=== PATIENT | female | born 1955 | race Caucasian/White ===

== ENCOUNTER 2016-11-18 19:36 | Emergency (ER) | payer OTHER ==
--- NOTE | ~2016-11-18 | CT71 ---
[facility] A Service of [facility] RADIOLOGY TEXT RESULTS PATIENT: LETICIA REYNOLDS LOCATION: [facility] : 53 UNIT #: [id number] AGE: [address]: Bolivar Wagoner MD SEX: F ORDER DR: [id number] [facility]. [place], [place] [address] [id number] MR#: [id number] Acc #: [id number] NAME: LETICIA REYNOLDS : 1955 SEX: F STUDY DATE/TIME: 11/18/2016 22:15 UNIT: [facility] ROOM: STUDY DESCRIPTION: CT Head Wo Contrast Attending Physician: Bolivar Wagoner M.D. Ordering Physician: Karley Reddy M.D. MEDICAL IMAGING REPORT This report is preliminary unless electronic signature is present EXAM CT head, noncontrast, 11/18/2016 HISTORY 61-year-old female in the ED complaining of 2-day history of right facial numbness. TECHNIQUE CT examination of the head was performed without IV contrast. This CT exam was performed with one or more of the following radiation dose reduction techniques: automatic exposure control, adjustment of mA and/or kV according to patient size, and iterative reconstruction. FINDINGS The examination is negative. There is no evidence of intracranial hemorrhage, mass, mass effect, acute cerebral edema or hydrocephalus. Atheromatous calcification is present in the carotid siphons. IMPRESSION No acute intracranial abnormality. Dictated by... Peter Márquez M.D. THIS IS AN ELECTRONICALLY VERIFIED REPORT Peter Márquez M.D. at 11/19/2016 6:03 AM LEXEI/luca TD: 11/18/2016 23:02 JOB #: [id number] [facility] A Service [facility] RADIOLOGY TEXT RESULTS PATIENT: LETICIA REYNOLDS LOCATION: [place] : 53 UNIT #: [id number] AGE: [address]: Bolivar Wagoner MD SEX: F ORDER DR: MEDICAL IMAGING REPORT Page 1 of 1 COPY
--- NOTE | ~2016-11-18 | EKG ---
PATIENT: LETICIA REYNOLDS UNIT #: [id number] Ventricular Rate: 71 BPM Atrial Rate: 71 BPM P-R Interval: 186 ms QRS Duration: 84 ms Q-T Interval: 438 ms QTC Calculation(Bezet): 475 ms P [place]: 68 degrees Calculated R [place]: 49 degrees Calculated T [place]: 58 degrees Diagnosis Line: Normal sinus rhythm Diagnosis Line: Normal ECG Diagnosis Line: When compared with ECG of 18-NOV-2016 22:35, Diagnosis Line: (unconfirmed) Diagnosis Line: No significant change was found Diagnosis Line: Confirmed by KETTY CONDE MD ([id number]) on 11/21/2016 Diagnosis Line: 4:15:48 PM INTERPRETING MD: ELTON EMMANUEL
[~2016-11-18 19:36] MED LIST: FLEXERIL10 M1 PO; ULTRAM PO
[2016-11-18 21:22] LABS: URINE SOURCE CLEAN CATCH
[2016-11-18 21:27] LABS: URINE APPEARANCE CLEAR; URINE BILIRUBIN NEG (NEG); URINE BLOOD 2+ (NEG); URINE COLOR YELLOW; URINE GLUCOSE NEG (NEG); URINE KETONE NEG (NEG); URINE LEUKOCYTE ESTERASE NEG (NEG); URINE NITRATE NEG (NEG); URINE PROTEIN NEG (NEG); URINE SPECIFIC GRAVITY 1.017 (1.003-1.035)
[2016-11-18 21:28] LABS: POC - CKMB <1.0 ng/mL (0.0-7.9); POC - TROPONIN <0.05 ng/mL (<=0.05)
[2016-11-18 21:30] LABS: U HYALINE CASTS AUWI 0-2 /[LPF]; URINE BACTERIA AUWI NEG (NEGATIVE); URINE SQUAMOUS EPITHELIAL CELL NONE SEEN /[HPF]
[2016-11-18 21:31] LABS: BASOPHIL% 0.5 % (0-2.5); EOSINOPHIL# 0.1 X10e3 (0-0.7); EOSINOPHIL% 1.2 % (0.0-7.0); HEMATOCRIT 40.4 % (35.0-45.0); HEMOGLOBIN 13.3 gm/dL (12.0-16.0); LYMPHOCYTE# 4.9 X10e3 (1.0-3.5); LYMPHOCYTE% 54.7 % (17.0-45.0); MEAN CELL VOLUME 86.7 FL (83-96); MEAN CORPUSCULAR HEMOGLOBIN 28.6 PG (28-34); MEAN PLATELET VOLUME 10.1 FL (6.5-11.5); MONOCYTE# 0.5 X10e3 (0-1.0); MONOCYTE% 5.5 % (3.0-12.0); NEUTROPHIL# 3.4 X10e3 (1.5-7.1); NEUTROPHIL% 38.1 % (40-75); PLATELET COUNT 156 X10e3 (140-420); RED BLOOD COUNT 4.66 X10e (3.90-5.30); RED CELL DISTRIBUTION WIDTH 13.5 % (11.0-15.5); WHITE BLOOD COUNT 8.9 X10e3 (4.0-10.5)
[2016-11-18 21:32] LABS: DIFF IND YES
[2016-11-18 21:34] LABS: CULTURE INDICATED? NO
[2016-11-18 22:00] LABS: ALBUMIN SERUM 4.6 g/dL (3.5-5.0); BILIRUBIN, DIRECT 0.1 mg/dL (0.0-0.2); BILIRUBIN,INDIRECT 0.6 mg/dL (0.0-0.9); BILIRUBIN,TOTAL 0.7 mg/dL (0.2-2.0); CALCIUM SERUM 8.9 mg/dL (8.4-10.2); CREATININE SERUM 0.7 mg/dL (0.6-1.4); GLOM FILT RATE Estimated 92.9 mL/min (>60); POTASSIUM 3.2 mmol/L (3.5-5.1); PROTEIN TOTAL SERUM 7.1 g/dL (6.0-8.3)
[2016-11-18 22:42] LABS: PLATELET ESTIMATE NORMAL (NORMAL)
[2016-11-18 23:12] LABS: AMPHETAMINE NEG (NEG); BARBITURATES NEG (NEG); BENZODIAZEPINES NEG (NEG); COCAINE NEG (NEG); MARIJUANA POS (NEG); OPIATES POS (NEG); TRICYCLIC ANTIDEPRESSANTS NEG (NEG); U METHADONE NEG (NEG)
== END 2016-11-18 23:49 | disposition home or self-care (01) ==
LOC: CED 19:36
PROVIDERS: Emergency Medicine
DX: R20.2 Paresthesia of skin (principal); I10 Essential (primary) hypertension; R20.3 Hyperesthesia; K74.60 Unspecified cirrhosis of liver; Z88.8 Allergy status to other drugs, medicaments and biological substances
CPT/HCPCS: 36415; 70450; 80048; 80076; 80307; 81003; 82553; 84484; 85025; 93005; 99284